=== PATIENT | male | born 2000 | race African-American/Black ===

== ENCOUNTER 2022-06-22 20:43 | Emergency (ER) | payer OTHER ==
[2022-06-22 21:11] LABS: MUDS CUTOFF CONCENTRATIONS CUTOFF CONC BELOW:
[2022-06-22 21:14] LABS: BILIRUBIN,URINE NEGATIVE (NEGATIVE); GLUCOSE, URINE (UA) NEGATIVE (NEGATIVE); KETONES,URINE (UA) NEGATIVE (NEGATIVE); LEUKOCYTE ESTERASE, URINE NEGATIVE (NEGATIVE); NITRITE,URINE NEGATIVE (NEGATIVE); OCCULT BLOOD,URINE NEGATIVE (NEGATIVE); PH,URINE 6.5 PH (5.0-7.5); PROTEIN,URINE NEGATIVE (NEGATIVE); UROBILINOGEN,URINE 0.2 (NORMAL) E.U./dL (NORMAL)
[2022-06-22 21:16] LABS: BASOPHILS % (AUTO) 0.4 %; EOSINOPHILS % (AUTO) 0.5 %; HCT - HEMATOCRIT 40.3 % (42.0-52.0); HGB - HEMOGLOBIN 13.4 g/dL (14.0-18.0); LYMPHOCYTES # (AUTO) 2.1 10^3/uL (1.5-3.5); LYMPHOCYTES % (AUTO) 27.8 %; MEAN CORPUSCULAR HEMOGLOBIN 30.9 pg (27.0-31.0); MEAN CORPUSCULAR HGB CONC 33.3 g/dL (32.0-36.0); MEAN CORPUSCULAR VOLUME 92.9 fL (80.0-94.0); MONOCYTES # (AUTO) 0.6 10^3/uL (0.0-1.0); MONOCYTES % (AUTO) 7.5 %; NEUTROPHILS # (AUTO) 4.8 10^3/uL (1.5-6.6); NEUTROPHILS % (AUTO) 63.5 %; PLT - PLATELET COUNT 182 10^3/uL (130-450); RED BLOOD COUNT 4.34 10^6/uL (4.70-6.10); RED CELL DISTRIBUTION WIDTH 12.2 % (12.0-15.0); WHITE BLOOD COUNT 7.5 x10^3/uL (4.8-10.8)
[2022-06-22 21:17] LABS: CLARITY,URINE CLEAR (CLEAR)
[2022-06-22 21:18] LABS: ACETAMINOPHEN < 10 ug/mL (10-30); ALBUMIN 5.1 g/dL (3.2-5.5); ALKALINE PHOSPHATASE 45 IU/L (42-121); ALT ALANINE AMINOTRANSFERASE 35 IU/L (10-60); AST ASPARTATE AMINOTRANSFERASE 36 IU/L (10-42); BILIRUBIN,TOTAL 0.8 mg/dL (0.2-1.0); BUN - BLOOD UREA NITROGEN 13 mg/dL (6-20); CALCIUM 9.4 mg/dL (8.5-10.3); CARBON DIOXIDE - CO2 29 mmol/L (21-32); CHLORIDE 102 mmol/L (101-111); ETOH - ETHANOL < 5.0 mg/dL; GFR - MDRD 114 (>89); GLUCOSE 104 mg/dL (70-100); LIPASE 38 U/L (22-51); POTASSIUM 3.9 mmol/L (3.5-5.0); SALICYLATE < 6.0 mg/dL; SODIUM 140 mmol/L (135-145); TOTAL PROTEIN 7.7 g/dL (6.7-8.2)
[2022-06-22 21:24] LABS: AMPHETAMINE SCREEN,URINE NEGATIVE (NEGATIVE); BARBITURATE SCREEN,UR NEGATIVE (NEGATIVE); BENZODIAZEPINES SCREEN, URINE NEGATIVE (NEGATIVE); COCAINE SCREEN URINE NEGATIVE (NEGATIVE); METHADONE SCREEN, URINE NEGATIVE (NEGATIVE); METHAMPHETAMINES SCREEN, URINE NEGATIVE (NEGATIVE); OPIATE SCREEN, URINE NEGATIVE (NEGATIVE); OXYCODONE SCREEN, URINE NEGATIVE (NEGATIVE); PROPOXYPHENE SCREEN, URINE NEGATIVE (NEGATIVE); THC CANNABINOID SCREEN, URINE NEGATIVE (NEGATIVE); TRICYCLIC ANTIDEPRESSANT,URINE NEGATIVE (NEGATIVE)
--- NOTE | 2022-06-22 21:25 | ED Physician Documentation ---
PD HPI MHE - Stated complaint Stated Complaint: SI - Chief complaint Chief Complaint: MHE - History obtained from History obtained from: Patient, Family (spouse (at bedside)) - History of Present Illness Primary symptom: Depression Timing - onset: Today (tonight) Contributing factors: Other (patient says "life"; denies any specific inciting factor or incident leading to what happened tonight) Similar symptoms before: Has not had sx before Recently seen: Not recently seen - Additional information Additional information: patient was at [place] and called his , expressed to her that he was feeling sad and considering jumping off the bridge. She told him to please come back home and he did so. He drove self home and then arrives to ED via EMS. On my HPI, he admits he was standing on bridge contemplating jumping but denies true intent and, by his description, he readily returned home after speaking with his . He presents voluntarily to ED and does not want inpatient treatment nor telepsychiatric evaluation nor SW evaluation. He requests d/c home , says he feels safe. Review of Systems Neurologic: denies: Headache Psychiatric: reports: Depressed. denies: Suicidal, Homicidal, Hallucinations, Delusions, Anxiety, Insomnia PD PAST MEDICAL HISTORY - Past Medical History Past Medical History: No Cardiovascular: None Respiratory: None Neuro: None Endocrine/Autoimmune: None GI: None : None HEENT: None Psych: None Musculoskeletal: None Derm: None - Past Surgical History Past Surgical History: No - Present Medications Home Medications: Ambulatory Orders Medication Instructions Recorded Confirmed No Known Home Medications 06/22/22 06/22/22 - Allergies Allergies/Adverse Reactions: Allergies Allergy/AdvReac Type Severity Reaction Status Date / Time No Known Drug Allergies Allergy Verified 06/22/22 20:59 - Social History Does the pt smoke?: No Smoking Status: Never smoker Does the pt drink ETOH?: Yes Does the pt have substance abuse?: No - Immunizations Immunizations are current?: No - POLST Patient has POLST: No PD ED PE NORMAL - Vitals Vital signs reviewed: Yes - General General: Alert and oriented X 3, No acute distress, Well developed/nourished - HEENT HEENT: PERRL, EOMI - Cardiac Cardiac: RRR, No murmur - Respiratory Respiratory: No respiratory distress, Clear bilaterally - Derm Derm: Normal color, Warm and dry - Neuro Neuro: Alert and oriented X 3 PD ED PE EXPANDED - Psych Psych: Poor eye contact, Other (answers are quiet but appropriate , polite) Results - Vitals Vitals: Vital Signs - 24 hr 06/22/22 06/22/22 20:52 21:54 Temperature 37.5 C Heart Rate 62 Respiratory 15 16 Rate Blood Pressure 145/77 H O2 Saturation 100 Oxygen O2 Source Room air - Labs Labs: Laboratory Tests 06/22/22 06/22/22 06/22/22 20:56 20:56 20:56 WBC 7.5 RBC 4.34 L Hgb 13.4 L Hct 40.3 L MCV 92.9 MCH 30.9 MCHC 33.3 RDW 12.2 Plt Count 182 MPV 12.0 H Neut # (Auto) 4.8 Lymph # (Auto) 2.1 Collin # (Auto) 0.6 Eos # (Auto) 0.0 Baso # (Auto) 0.0 Absolute Nucleated RBC 0.00 Nucleated RBC % 0.0 Sodium 140 Potassium 3.9 Chloride 102 Carbon Dioxide 29 Anion Gap 9.0 BUN 13 Creatinine 1.0 Estimated GFR (MDRD) 114 Glucose 104 H Calcium 9.4 Total Bilirubin 0.8 AST 36 ALT 35 Alkaline Phosphatase 45 Total Protein 7.7 Albumin 5.1 Globulin 2.6 Albumin/Globulin Ratio 2.0 Lipase 38 TSH 1.49 Urine Color Urine Clarity Urine pH Ur Specific [place] Urine Protein Urine Glucose (UA) Urine Ketones Urine Occult Blood Urine Nitrite Urine Bilirubin Urine Urobilinogen Ur Leukocyte Esterase Ur Microscopic Review Urine Culture Comments Salicylates < 6.0 Urine Opiates Screen Ur Oxycodone Screen Urine Methadone Screen Ur Propoxyphene Screen Acetaminophen < 10 L Ur Barbiturates Screen Ur Tricyclics Screen Ur Phencyclidine Scrn Ur Amphetamine Screen U Methamphetamines Scrn U Benzodiazepines Scrn Urine Cocaine Screen U Cannabinoids Screen Ethyl Alcohol < 5.0 06/22/22 21:00 WBC RBC Hgb Hct MCV MCH MCHC RDW Plt Count MPV Neut # (Auto) Lymph # (Auto) [place]lin # (Auto) Eos # (Auto) Baso # (Auto) Absolute Nucleated RBC Nucleated RBC % Sodium Potassium Chloride Carbon Dioxide Anion Gap BUN Creatinine Estimated GFR (MDRD) Glucose Calcium Total Bilirubin AST ALT Alkaline Phosphatase Total Protein Albumin Globulin Albumin/Globulin Ratio Lipase TSH Urine Color YELLOW Urine Clarity CLEAR Urine pH 6.5 Ur Specific [place] <=1.005 Urine Protein NEGATIVE Urine Glucose (UA) NEGATIVE Urine Ketones NEGATIVE Urine Occult Blood NEGATIVE Urine Nitrite NEGATIVE Urine Bilirubin NEGATIVE Urine Urobilinogen 0.2 (NORMAL) Ur Leukocyte Esterase NEGATIVE Ur Microscopic Review NOT INDICATED Urine Culture Comments NOT INDICATED Salicylates Urine Opiates Screen NEGATIVE Ur Oxycodone Screen NEGATIVE Urine Methadone Screen NEGATIVE Ur Propoxyphene Screen NEGATIVE Acetaminophen Ur Barbiturates Screen NEGATIVE Ur Tricyclics Screen NEGATIVE Ur Phencyclidine Scrn NEGATIVE Ur Amphetamine Screen NEGATIVE U Methamphetamines Scrn NEGATIVE U Benzodiazepines Scrn NEGATIVE Urine Cocaine Screen NEGATIVE U Cannabinoids Screen NEGATIVE Ethyl Alcohol PD MEDICAL DECISION MAKING - ED course Complexity details: reviewed results, re-evaluated patient, considered differential, d/w patient ED course: patient presents for depression, contemplated jumping off of bridge but strongly denies intent and was quick to return back home after d/w . Likewise, he came to ED via EMS without argument and is thus voluntary. He does not want any of the services mentioned in HPI and wants to be discharged home. His is at bedside and patient is comfortable going home and is comfortable taking him home. Patient is able to contract for safety: he promises to call 911 if he feels unsafe at any time (regarding thoughts of self-harm and / or harming others) Departure - Departure Disposition: 01 Home, Self Care Clinical Impression: Depression Condition: Good Instructions: ED Depression Comments: You have been offered services including psychiatric consult (via telepsychiatry service), social work consult (available in the mornings on weekdays only), inpatient treatment. You have declined these services. I agree with your thought that you would benefit from meeting with a mental health counselor. Contact your insurance provider to inquire about the referral process. If you feel unsafe at any time (like you might hurt yourself or others), please call 911 and return to the ER immediately.
[2022-06-22 22:48] VITALS: BP 131/70
== END 2022-06-22 22:47 | disposition home or self-care (01) ==
LOC: ED 20:43
DX: F32.A Depression, unspecified (principal)
CPT/HCPCS: 36415; 80053; 80306; 80307; 80320; 80329; 81001; 81003; 83690; 84443; 85025; 87086; 99282; 99283